=== PATIENT | male | born 1990 | race Caucasian/White ===

== ENCOUNTER 2025-01-25 12:34 | Emergency (ER) | payer OTHER, SELFPAY ==
[2025-01-25 12:37] VITALS: BP 131/73
[2025-01-25 13:06] LABS: ALT (SGPT) 29 U/L (0-50); AST (SGOT) 37 U/L (17-59); Albumin 4.5 g/dl (3.5-5.0); Alkaline Phosphatase 54 U/L (38-126); Blood Urea Nitrogen 21 mg/dl (9-20); Calcium 9.4 mg/dl (8.4-10.2); Carbon Dioxide 28 mmol/L (22-30); Chloride 107 mmol/L (98-107); Glucose 97 mg/dl (70-99); Potassium 4.3 mmol/L (3.5-5.1); Sodium 143 mmol/L (135-145); Total Protein 8.1 g/dl (6.3-8.2); eGFR > 60.00
[2025-01-25 13:58] LABS: Hematocrit 47.3 % (39.0-52.0); Hemoglobin 16.5 g/dL (13.0-18.0); Mean Corp Hgb Conc. 34.9 g/dL (33.0-37.0); Mean Corpuscular Volume 95.2 fL (80.0-94.0); Nucleated Red Blood Cells % 0 % (-); Platelet Count 217 10^3/uL (130-400); Red Cell Dist. Width 12.9 % (11.5-14.5)
--- NOTE | 2025-01-25 15:49 | ED.GENMED ---
History of Present Illness
General
Chief Complaint: Breathing Problem
Source: patient
Exam Limitations: none
Time Seen by Provider: 01/25/25 15:37
Nursing documentation reviewed up to this point in time: agreed with
History of Present Illness
History of Present Illness:
Patient to ED with report of SOB and cough. He states he has had a cough for the past few months but it is worsening. Now feels SOB. Denies fever/chills. No pain or swelling to legs, no history of DVT. Uses an albuterol inhaler but states it
hasnt been working for him lately. Brought to ED from [facility] by [facility]. PMH TBI
Review of Systems
Review of Systems
Allergies reviewed?: Yes
All Other Systems: ROS reviewed and negative except as documented in HPI and ROS
Constitutional: Reports no symptoms
EENT: Reports no symptoms
Respiratory: Reports cough and trouble breathing
Cardiac: Reports no symptoms
ABD/GI: Reports no symptoms
: Reports no symptoms
Musculoskeletal: Reports no symptoms
Skin: Reports no symptoms
Neurological: Reports no symptoms
Psychiatric: Reports no symptoms
Phy Exam
General Physical Exam
General Presentation: well appearing and mild distress
General age: appears stated age
General Skin: warm
General Habitus: normal
General Mental: alert
Cardiovascular Exam
Cardiovascular Exam: regular rate/rhythm and no edema
Pulmonary Exam
Pulmonary Exam: chest non tender and generalized wheezing
Oxygen Status: room air (95%)
Musculoskeletal Exam
Musculoskeletal Exam: full ROM and neuro vasc intact
Skin Exam
Skin Exam: normal color, warm/dry and no rash
Psychiatric Exam
Psychiatric Exam: normal mood/affect
Course
Orders/Labs/Results
Orders:
Orders
01/25/25 12:39
CR Chest - 2 Views Urgent
Comment:
Reason For Exam: SOB
01/25/25 12:44
Complete Blood Count/With Diff Urgent
Comprehensive Metabolic Panel Urgent
01/25/25 15:48
Dexamethasone Pf [Decadron] 10 mg PO NOW STA
Ipratropium/Albuterol Sulfate [Duoneb] 3 ml INH R NOW STA
Abnormal Lab Results
01/25/25
12:44
WBC 12.2 H 10^3/uL
(4.8-10.8)
MCV 95.2 H fL
(80.0-94.0)
MCH 33.2 H pg
(27.0-31.0)
Absolute Neuts (auto) 7.1 H 10^3/uL
(1.4-6.5)
Absolute Eos (auto) 2.5 H 10^3/uL
(0-0.7)
Lymphocytes % 15.5 L %
(20.5-51.1)
Eosinophils % 20.8 H %
(0-6)
BUN 21 H mg/dl
(9-20)
01/25/25 12:44
01/25/25 12:44
Vital Signs
Initial and Last Documented VS:
Initial Vital Signs
Temp Pulse Resp BP Pulse Ox
98.7 F 92 20 131/73 95
01/25/25 12:37 01/25/25 12:37 01/25/25 12:37 01/25/25 12:37 01/25/25 12:37
Last Documented Vital Signs
Temp Pulse Resp BP Pulse Ox
98.7 F 92 20 131/73 95
01/25/25 12:37 01/25/25 12:37 01/25/25 12:37 01/25/25 12:37 01/25/25 15:53
*Pulse Oximetry
SaO2: 95
Oxygen Mode of Delivery: Room air
Patient hypoxic: no
*Critical Care Note
Total Time (30-74mins, 75-104mins- exclusive of procedures): Not Applicable
Update Note
Update Note:
Patient to ED with report of increasing SOB and cough. Has an albuterol inhaler which he reports is not helping. He is afebrile. Pulse ox 95% RA. WHeezing noted all ho. Will give duoneb, decadron now.
Improved after duoneb. PUlse ox 98% RA. He reports improvement in cough and feeling of chest tightness. Will discharge home. Will give rx for prednisone taper, albuteral MDI. Given written instructions on s/s to return to ED.
ED Attending Note
-
Portions of this chart may have been created with voice recognition software.� Occasional wrong word or��sound alike� substitutions may have occurred due to the inherent limitations of voice recognition software.
Discharge Plan
Departure
Patient Disposition: Home (Routine Discharge)
Date of Disposition: 01/25/25
Time of Disposition: 16:38
Patient with high blood pressure during this ER visit?: No
Condition: Good
Covid-19: Not Applicable
Discharge Problem:
Cough, Asthma exacerbation
Instructions: Asthma, Adult (DC)
Prescriptions:
New
prednisone 10 mg Tablet
See Rx Instructions .ROUTE .COMPLEX Qty: 45 0RF
Rx Instructions:
Take By Mouth:
50 mg daily x3 days, 40 mg daily x3 days,
30 mg daily x3 days, 20 mg daily x3 days,
10 mg daily x3 days
albuterol sulfate [Ventolin HFA] 90 mcg/actuation HFA aerosol inhaler
2 puff inhalation Q4H PRN (Reason: shortness of breath or wheezing) Qty: 8.5 1RF
No Action
trazodone 50 mg tablet
50 mg PO HS
acetaminophen 500 mg tablet
1,000 mg PO BID
clonidine HCl 0.2 mg tablet
0.2 mg PO DAILY
divalproex 500 mg tablet extended release 24 hr
1,500 mg PO HS
albuterol sulfate 90 mcg/actuation HFA aerosol inhaler
2 puff INHALATION Q4HPRN PRN (Reason: SOB)
escitalopram oxalate 20 mg tablet
20 mg PO DAILY
diclofenac sodium 1 % gel
1 ea TOPICAL BIDPRN PRN (Reason: PAIN)
multivitamin with folic acid [Daily-Cintia (with folic acid)] 400 mcg tablet
1 tab PO DAILY
Referrals:
NONE,* [Family Provider, Internal Medicine]
Activity Restrictions/Additional Instructions:
Follow up with your family doctor in 1-2 days. Return to the emergency department immediately for any changes in/worsening of your symptoms.
Interventions
Interventions:
*General Assessment Last Done: 01/25/25 12:37
ED- Cardiac Assessment Last Done: 01/25/25 15:05
ED- Pulmonary Assessment Last Done: 01/25/25 15:05
Discharge Date and Time
Print Language: [place]
[2025-01-25] MEDS: DUONEB 3 ML INH (15:58)
[2025-01-25] MEDS: DECADRON 10 MG PO (15:58)
[2025-01-25 17:26] VITALS: BMI 32.0
== END 2025-01-25 19:00 | disposition home or self-care (01) ==
LOC: EMR 12:34
PROVIDERS: Emergency Medicine; EMERGENCY PHYSICIAN Emergency Medicine
DX: J45.901 Unspecified asthma with (acute) exacerbation (principal); Z87.820 Personal history of traumatic brain injury
CPT/HCPCS: 99284; 94640; 71046; 80053; 85025